=== PATIENT | female | born 1980 | race Caucasian/White ===

== ENCOUNTER 2016-03-11 21:19 | Day surgery (SDC) | payer OTHER ==
[~2016-03-11] VITALS: Ht 157.5 cm; Wt 63.5 kg
[~2016-03-11 21:19] MED LIST: ADVIL,NUPRIN,M200 MG PO; ALPRAZOLAM1 MG PO; AMBIEN10 MG PO; AMPHETAMINE SALT5 MG PO; AUGMENTIN875 MG PO; Buspar PO; CATAPRES0.1 MG; CATAPRES0.1 MG PO; ESCITALOPRAM OX20 MG PO; FLEXERIL10 MG PO; HYDROCODON-ACE1 EAC7 PO; HYDROXYZINE HCL25 MG PO; INDOCIN25 MG PO; INDOMETHACIN75 MG PO; KLONOPIN0.5 M1; LEXAPRO20 MG PO; LEXAPRO5 MG PO; LIDOCAINE20 MG/1 M5 PO; LISINOPRIL; LORTAB 5-325 M1 EACH PO; NAPROSYN500 MG PO; NORCO 5/3251 TABLET PO; PERIOGARD480 ML MM; PREDNISONE20 MG PO; PREDNISONE50 MG PO; SKELAXIN800 MG PO; TYLENOL EXTRA500 MG PO; Xanax PO
[2016-03-11 21:44] LABS: HEMATOCRIT 41.3 % (36.0-46.0); MCH 32.2 PG (29.0-34.0); MCHC 34.6 G/DL (30.0-36.0); MEAN PLAT.VOLUME 9.3 uM^3 (9.5-12.4); PLATELET COUNT 259 K/uL (156-360); RBC DIS.WIDTH-CV 11.8 % (11.8-14.6); RBC DIS.WIDTH-SD 39.3 % (39-53); RED BLOOD COUNT 4.44 M/uL (3.80-5.20); WHITE BLOOD COUNT 15.6 K/uL (4.1-10.2)
[2016-03-11 21:56] LABS: CHLORIDE 104 mEq/L (99-109); POTASSIUM 3.9 mEq/L (3.7-5.4); SODIUM 136 mEq/L (136-147)
[2016-03-11 21:57] LABS: GLUCOSE 118 mg/dL (70-99)
[2016-03-11 21:59] LABS: ANION GAP 8 MEQ/L (2-14)
[2016-03-11 22:01] LABS: GFR ESTIMATE (CALCULATED) > 59 mL/min/
[2016-03-11 22:02] LABS: UREA NITROGEN (BUN) 9 mg/dL (9-23)
[2016-03-11 23:10] LABS: TOTAL BILIRUBIN 0.6 mg/dL (0.0-1.0)
[2016-03-11 23:11] LABS: ALKALINE PHOSPHATASE 38 IU/L (3-129)
[2016-03-11 23:13] LABS: DIRECT BILIRUBIN 0.3 mg/dL (0.0-0.3)
[2016-03-11 23:15] LABS: LIPASE 58 U/L (1.0-51.0)
[2016-03-12 00:13] LABS: QUANTITATIVE HCG < 4.0 MIU/ML
[2016-03-12] MEDS ORDERED: NORCO 7.5/321 TABLET PO (00:19)
[2016-03-12] MEDS ORDERED: GABAPENTIN400 MG PO (00:20)
[2016-03-12] MEDS ORDERED: METHOCARBAMOL750 MG PO (00:20)
[2016-03-12] MEDS ORDERED: LODINE200 MG PO (00:33)
[2016-03-12] MEDS ORDERED: VENTOLIN HFA18 GM IH (00:34)
[2016-03-12] MEDS ORDERED: LIDOCAINE TP (00:34)
[2016-03-12 04:10] VITALS: BP 107/67
[2016-03-12 07:46] LABS: HEMATOCRIT 34.2 % (36.0-46.0); MCH 32.1 PG (29.0-34.0); MCHC 33.3 G/DL (30.0-36.0); MCV 96.3 FL (83-99); MEAN PLAT.VOLUME 9.4 uM^3 (9.5-12.4); PLATELET COUNT 207 K/uL (156-360); RBC DIS.WIDTH-CV 12.3 % (11.8-14.6); RBC DIS.WIDTH-SD 43.1 % (39-53)
[2016-03-12 07:50] LABS: RED BLOOD COUNT 3.55 M/uL (3.80-5.20); WHITE BLOOD COUNT 10.5 K/uL (4.1-10.2)
[2016-03-12 08:00] VITALS: BP 94/69
[2016-03-12 08:03] LABS: ANION GAP 6 MEQ/L (2-14); CHLORIDE 109 MEQ/L (99-109); GFR ESTIMATE (CALCULATED) > 59 mL/min/; GLUCOSE 111 mg/dL (70-99); POTASSIUM 3.9 MEQ/L (3.7-5.4); SAMPLE HEMOLYSIS CHECK 0; SAMPLE ICTERIC CHECK 0; SAMPLE LIPEMIA CHECK 0; SODIUM 138 MEQ/L (136-147); UREA NITROGEN (BUN) 7 mg/dL (9-23)
[2016-03-12 15:24] VITALS: BP 107/71
[2016-03-12 23:50] VITALS: BP 108/70
[2016-03-13 04:12] VITALS: BP 111/72
[2016-03-13 07:25] VITALS: BP 112/68
[2016-03-13 07:34] LABS: HEMATOCRIT 32.8 % (36.0-46.0); MCH 31.2 PG (29.0-34.0); MCHC 32.3 G/DL (30.0-36.0); MCV 96.5 FL (83-99); MEAN PLAT.VOLUME 9.2 uM^3 (9.5-12.4); PLATELET COUNT 202 K/uL (156-360); RBC DIS.WIDTH-CV 12.3 % (11.8-14.6); RBC DIS.WIDTH-SD 43.4 % (39-53)
[2016-03-13 07:38] LABS: WHITE BLOOD COUNT 6.7 K/uL (4.1-10.2)
[2016-03-13 08:28] VITALS: BP 101/68
[2016-03-13] MEDS ORDERED: DIFLUCAN150 MG PO (10:14)
[2016-03-13] MEDS ORDERED: NICOTINE PATCH1 EAC2 TD (10:14)
[2016-03-13] MEDS ORDERED: AUGMENTIN875 MG PO (10:14)
[2016-03-13] MEDS ORDERED: OXYCODONE HCL5 MG PO (10:14)
== END 2016-03-13 12:54 | disposition home or self-care (01) ==
LOC: EME 21:19 → SDC 03-12 00:58 → EME 03-12 00:58 → 2SOUTH 03-12 02:00 → 2EAST 03-12 02:00
PROVIDERS: Surgery
PROC: 0DTJ0ZZ Resection of Appendix, Open Approach (ICD-10-PCS; principal; 2016-03-12)
DX: K35.3 Acute appendicitis with localized peritonitis (principal); K42.9 Umbilical hernia without obstruction or gangrene; K02.9 Dental caries, unspecified; F17.210 Nicotine dependence, cigarettes, uncomplicated; R00.0 Tachycardia, unspecified; G89.29 Other chronic pain; Z79.891 Long term (current) use of opiate analgesic
CPT/HCPCS: 71020; 74177; 80048; 80076; 81003; 83690; 84702; 85027; 87070; 87075; 87076; 87077; 87186; 87205; 88304; 93005; 94010; 94640 76; 94760; 94799; 99202; 99281; 99285; G0378; J0330; J1170; J1650; J1885; J2250; J2405; J2710; J3010; J7030

== ENCOUNTER 2016-09-06 11:09 | Emergency (ER) | payer OTHER ==
[~2016-09-06] VITALS: Ht 157.5 cm; Wt 76.4 kg
[~2016-09-06 11:09] MED LIST changes: +DIFLUCAN150 MG PO; +GABAPENTIN400 MG PO; +LIDOCAINE TP; +LODINE200 MG PO; +METHOCARBAMOL750 MG PO; +NICOTINE PATCH1 EAC2 TD; +NORCO 7.5/321 TABLET PO; +OXYCODONE HCL5 MG PO; +VENTOLIN HFA18 GM IH
[2016-09-06 12:29] LABS: HEMATOCRIT 43.8 % (36.0-46.0); MCH 31.7 PG (29.0-34.0); MCV 93.2 FL (83-99); MEAN PLAT.VOLUME 9.8 uM^3 (9.5-12.4); PLATELET COUNT 219 K/uL (156-360); RBC DIS.WIDTH-CV 11.9 % (11.8-14.6); WHITE BLOOD COUNT 5.2 K/uL (4.1-10.2)
[2016-09-06 12:42] LABS: CHLORIDE 107 mEq/L (99-109); SODIUM 138 mEq/L (136-147)
[2016-09-06 12:44] LABS: GLUCOSE 96 mg/dL (70-99)
[2016-09-06 12:45] LABS: ANION GAP 5 MEQ/L (2-14)
[2016-09-06 12:47] LABS: GFR ESTIMATE (CALCULATED) > 59 mL/min/
[2016-09-06 12:48] LABS: UREA NITROGEN (BUN) 7 mg/dL (9-23)
[2016-09-06 12:50] LABS: TROP-I INTERPRETATION NEGATIVE; TROPONIN-I < 0.01 ng/mL (0.0-0.30)
[2016-09-06 13:46] LABS: D-DIMER ELISA 0.37 mg/L FEU (< 0.57)
[2016-09-06] MEDS ORDERED: ANTIVERT12.5 MG PO (13:50)
[2016-09-06] MEDS ORDERED: MOTRIN600 MG PO (13:50)
[2016-09-06 14:10] VITALS: BP 92/68
[2016-09-13] MEDS ORDERED: BACTRIM,SEPT1 TABLET PO (13:17)
[2016-09-13] MEDS ORDERED: ULTRAM50 MG PO (13:18)
== END 2016-09-06 14:11 | disposition home or self-care (01) ==
LOC: EME → EDBD 11:09 → EME 14:11
PROVIDERS: Emergency Medicine
DX: R42 Dizziness and giddiness (principal); M94.0 Chondrocostal junction syndrome [Tietze]; R06.02 Shortness of breath; F17.200 Nicotine dependence, unspecified, uncomplicated
CPT/HCPCS: 71020; 80048; 84484; 85027; 85379; 93005; 99281; 99284

== ENCOUNTER → 2016-09-13 | Emergency (ER) | payer OTHER ==
[~2016-09-13] VITALS: Ht 157.5 cm; Wt 66.3 kg
[~2016-09-13] MED LIST changes: +ANTIVERT12.5 MG PO; +BACTRIM,SEPT1 TABLET PO; +MOTRIN600 MG PO; +ULTRAM50 MG PO
[2016-09-13 11:49] LABS: HEMATOCRIT 43.1 % (36.0-46.0); MCH 31.7 PG (29.0-34.0); MCHC 34.1 G/DL (30.0-36.0); MCV 92.9 FL (83-99); PLATELET COUNT 214 K/uL (156-360); RBC DIS.WIDTH-CV 11.7 % (11.8-14.6); RED BLOOD COUNT 4.64 M/uL (3.80-5.20)
[2016-09-13 12:02] LABS: ADD MIUA? YES; BILIRUBIN NEGATIVE; BLOOD NEGATIVE; COLOR YELLOW ((YELLOW)); GLUCOSE (STRIP) NEGATIVE; KETONES NEGATIVE; LEUKOCYTES MODERATE; NITRITE POSITIVE; PROTEIN (STRIP) 30; SPECIFIC GRAVITY 1.026 (1.000-1.030); UROBILINOGEN 0.2 MG/DL (0.2-1.0)
[2016-09-13 12:13] LABS: ADD MEDTOX COMMENT Y; AMPHETAMINE NEGATIVE (500 ng/mL); BARBITURATES NEGATIVE (200 ng/mL); BENZODIAZEPINES PRESUMPTIVE POSITIVE (150 ng/mL); COCAINE NEGATIVE (150 ng/mL); INTERNAL CONTROLS VALID? YES; METHADONE NEGATIVE (200 ng/mL); METHAMPHETAMINE NEGATIVE (500 ng/mL); OPIATES (MORPHINE) NEGATIVE (100 ng/mL); OXYCODONE NEGATIVE (100 ng/mL); PHENCYCLIDINE NEGATIVE (25 ng/mL); PROPOXYPHENE NEGATIVE (300 ng/mL); THC CANNABINOIDS NEGATIVE (50 ng/mL); TRICYCLIC ANTIDEPRESSANTS NEGATIVE (300 ng/mL)
[2016-09-13 12:23] LABS: QUANTITATIVE HCG < 4.0 MIU/ML
[2016-09-13 12:31] LABS: BACTERIA 3+ /HPF; BENZODIAZEPINES QUANT VALUE 0 NG/ML; BENZODIAZEPINES, URINE SCREEN Negative (200 ng/mL); EPITHELIAL CELLS 1+ /HPF; MUCUS TRACE /LPF; RED BLOOD CELLS 0-5 /HPF (0-5)
[2016-09-13 12:31] LABS: CHLORIDE 103 mEq/L (99-109); POTASSIUM 4.3 mEq/L (3.7-5.4); SODIUM 134 mEq/L (136-147)
[2016-09-13 12:33] LABS: GLUCOSE 84 mg/dL (70-99)
[2016-09-13 12:34] LABS: ANION GAP 11 MEQ/L (2-14)
[2016-09-13 12:35] LABS: TOTAL BILIRUBIN 0.4 mg/dL (0.0-1.0)
[2016-09-13 12:36] LABS: ALKALINE PHOSPHATASE 41 IU/L (3-129)
[2016-09-13 12:37] LABS: GFR ESTIMATE (CALCULATED) > 59 mL/min/
[2016-09-13 12:38] LABS: UREA NITROGEN (BUN) 12 mg/dL (9-23)
[2016-09-13 14:18] VITALS: BP 91/72
== END | disposition home or self-care (01) ==
LOC: EME 09:57
PROVIDERS: Emergency Medicine
DX: N39.0 Urinary tract infection, site not specified (principal); R42 Dizziness and giddiness; M41.9 Scoliosis, unspecified; F17.200 Nicotine dependence, unspecified, uncomplicated
CPT/HCPCS: 70450; 80053; 81003; 84702; 84999; 85027; 93005; 99281; 99284; J7030

== ENCOUNTER 2017-02-09 14:52 | Emergency (ER) | payer OTHER ==
[~2017-02-09] VITALS: Ht 157.5 cm; Wt 66.9 kg
[2017-02-09] MEDS ORDERED: BUSPAR15 MG PO (16:35)
[2017-02-09] MEDS ORDERED: PROPRANOLOL HCL10 MG PO (16:35)
[2017-02-09] MEDS ORDERED: SEROQUEL50 MG PO (16:35)
[2017-02-09] MEDS ORDERED: SEROQUEL100 MG PO (16:35)
[2017-02-09 17:00] VITALS: BP 114/88
== END 2017-02-09 17:00 | disposition home or self-care (01) ==
LOC: EME 14:52
DX: Z76.0 Encounter for issue of repeat prescription (principal); F43.10 Post-traumatic stress disorder, unspecified; F41.9 Anxiety disorder, unspecified; F17.200 Nicotine dependence, unspecified, uncomplicated
CPT/HCPCS: 99281; 99283

== ENCOUNTER 2017-03-04 12:33 | Emergency (ER) | payer OTHER ==
[~2017-03-04] VITALS: Ht 154.9 cm; Wt 69.4 kg
[~2017-03-04 12:33] MED LIST changes: +BUSPAR15 MG PO; +PROPRANOLOL HCL10 MG PO; +SEROQUEL100 MG PO; +SEROQUEL50 MG PO
[2017-03-04] MEDS ORDERED: INDERAL10 MG PO (14:47)
[2017-03-04] MEDS ORDERED: BUSPAR15 MG PO (14:47)
[2017-03-04] MEDS ORDERED: MOTRIN600 MG PO (14:47)
[2017-03-04] MEDS ORDERED: SEROQUEL100 MG PO (14:47)
[2017-03-04 14:51] VITALS: BP 1102/65
== END 2017-03-04 14:57 | disposition home or self-care (01) ==
LOC: EME 12:33
DX: J02.9 Acute pharyngitis, unspecified (principal); H92.02 Otalgia, left ear; Z76.0 Encounter for issue of repeat prescription; F17.200 Nicotine dependence, unspecified, uncomplicated
CPT/HCPCS: 87651 90; 99281; 99283

== ENCOUNTER 2017-03-12 05:31 | Day surgery (SDC) | payer OTHER ==
[~2017-03-12] VITALS: Ht 157.5 cm; Wt 66.7 kg
[~2017-03-12 05:31] MED LIST changes: +INDERAL10 MG PO
[2017-03-12 06:36] VITALS: BP 120/78
[2017-03-12 09:05] VITALS: BP 115/79
[2017-03-12 09:59] VITALS: BP 121/75
== END 2017-03-12 10:05 | disposition home or self-care (01) ==
LOC: SDC 05:31
PROC: 0UBC8ZX Excision of Cervix, Via Natural or Artificial Opening Endoscopic, Diagnostic (ICD-10-PCS; principal; 2017-03-12)
DX: D06.9 Carcinoma in situ of cervix, unspecified (principal); F41.8 Other specified anxiety disorders; D64.9 Anemia, unspecified; F17.210 Nicotine dependence, cigarettes, uncomplicated
CPT/HCPCS: 88305; 88307; J0131; J1100; J1885; J2250; J2405; J2765; J3010

== ENCOUNTER 2017-07-17 18:30 | Emergency (ER) | payer OTHER ==
[~2017-07-17] VITALS: Ht 157.5 cm; Wt 74.3 kg
[2017-07-17 19:04] LABS: HEMATOCRIT 41.6 % (36.0-46.0); HEMOGLOBIN 14.8 G/DL (11.9-15.5); MCH 31.7 PG (29.0-34.0); MCHC 35.6 G/DL (30.0-36.0); MCV 89.1 FL (83-99); PLATELET COUNT 261 K/uL (156-360); RBC DIS.WIDTH-CV 12.2 % (11.8-14.6); RBC DIS.WIDTH-SD 39.9 % (39-53); RED BLOOD COUNT 4.67 M/uL (3.80-5.20); WHITE BLOOD COUNT 8.5 K/uL (4.1-10.2)
[2017-07-17 19:14] LABS: ALBUMIN 4.6 g/dL (3.2-4.8)
[2017-07-17 19:15] LABS: CHLORIDE 107 mEq/L (99-109); POTASSIUM 3.8 mEq/L (3.7-5.4); SODIUM 138 mEq/L (136-147)
[2017-07-17 19:17] LABS: GLUCOSE 99 mg/dL (70-99); TOTAL PROTEIN 7.9 g/dL (6.4-8.3)
[2017-07-17 19:19] LABS: TOTAL BILIRUBIN 0.5 mg/dL (0.0-1.0)
[2017-07-17 19:20] LABS: ALKALINE PHOSPHATASE 53 IU/L (3-129)
[2017-07-17 19:21] LABS: CREATININE 0.8 mg/dL (0.6-1.3); GFR ESTIMATE (CALCULATED) > 59 mL/min/
[2017-07-17 19:22] LABS: AST (GOT) 16 IU/L (2-34); UREA NITROGEN (BUN) 8 mg/dL (9-23)
[2017-07-17 19:24] LABS: ALT (GPT) 19 IU/L (3-49); LIPASE 204 U/L (1.0-51.0)
[2017-07-17 19:30] LABS: QUANTITATIVE HCG < 4.0 MIU/ML
[2017-07-17] MEDS ORDERED: ZOFRAN ODT4 MG PO (19:34)
[2017-07-17 20:52] VITALS: BP 107/75
== END 2017-07-17 20:52 | disposition home or self-care (01) ==
LOC: EME 18:30
PROVIDERS: Physician Assistant
DX: K85.90 Acute pancreatitis without necrosis or infection, unspecified (principal); F17.200 Nicotine dependence, unspecified, uncomplicated; M41.9 Scoliosis, unspecified
CPT/HCPCS: 80053; 81003; 83690; 84702; 85027; 99281; 99285; J2405; J7030

== ENCOUNTER 2017-07-21 20:56 | Emergency (ER) | payer OTHER ==
[~2017-07-21] VITALS: Ht 157.5 cm; Wt 73.3 kg
[~2017-07-21 20:56] MED LIST changes: +ZOFRAN ODT4 MG PO
[2017-07-21 21:46] LABS: HEMATOCRIT 42.1 % (36.0-46.0); HEMOGLOBIN 14.7 G/DL (11.9-15.5); MCH 31.5 PG (29.0-34.0); MCHC 34.9 G/DL (30.0-36.0); MCV 90.3 FL (83-99); PLATELET COUNT 296 K/uL (156-360); RBC DIS.WIDTH-CV 12.3 % (11.8-14.6); RBC DIS.WIDTH-SD 39.8 % (39-53); RED BLOOD COUNT 4.66 M/uL (3.80-5.20); WHITE BLOOD COUNT 6.5 K/uL (4.1-10.2)
[2017-07-21 21:59] LABS: ALBUMIN 4.6 g/dL (3.2-4.8); CHLORIDE 105 mEq/L (99-109); POTASSIUM 4.4 mEq/L (3.7-5.4); SODIUM 141 mEq/L (136-147)
[2017-07-21 22:01] LABS: GLUCOSE 109 mg/dL (70-99)
[2017-07-21 22:03] LABS: TOTAL BILIRUBIN 0.5 mg/dL (0.0-1.0)
[2017-07-21 22:05] LABS: ALKALINE PHOSPHATASE 53 IU/L (3-129); CREATININE 0.9 mg/dL (0.6-1.3); GFR ESTIMATE (CALCULATED) > 59 mL/min/
[2017-07-21 22:06] LABS: UREA NITROGEN (BUN) 6 mg/dL (9-23)
[2017-07-21 22:07] LABS: AST (GOT) 21 IU/L (2-34)
[2017-07-21 22:08] LABS: ALT (GPT) 26 IU/L (3-49)
[2017-07-21 22:14] LABS: QUANTITATIVE HCG < 4.0 MIU/ML
[2017-07-21 22:47] LABS: LIPASE 53 U/L (1.0-51.0)
[2017-07-22 02:10] LABS: APPEARANCE CLOUDY ((CLEAR)); BILIRUBIN NEGATIVE; BLOOD NEGATIVE; COLOR AMBER ((YELLOW)); GLUCOSE (STRIP) NEGATIVE; KETONES NEGATIVE; LEUKOCYTES MODERATE; NITRITE POSITIVE; PROTEIN (STRIP) 30; SPECIFIC GRAVITY 1.029 (1.000-1.030)
[2017-07-22 02:27] LABS: BACTERIA NONE SEEN /HPF; EPITHELIAL CELLS 2+ /HPF; MUCUS 4+ /LPF; RED BLOOD CELLS 0-5 /HPF (0-5); UCUL ADDED? YES; WHITE BLOOD CELLS 30-40 /HPF (0-5)
[2017-07-22] MEDS ORDERED: ZOFRAN ODT8 MG PO (02:31)
[2017-07-22] MEDS ORDERED: BENTYL20 MG PO (02:31)
[2017-07-22] MEDS ORDERED: PYRIDIUM200 MG PO (02:31)
[2017-07-22] MEDS ORDERED: KEFLEX500 MG PO (02:31)
[2017-07-22 02:45] VITALS: BP 105/80
== END 2017-07-22 02:51 | disposition home or self-care (01) ==
LOC: EME 20:56
DX: N39.0 Urinary tract infection, site not specified (principal); R11.0 Nausea; R10.30 Lower abdominal pain, unspecified; M41.9 Scoliosis, unspecified; F17.200 Nicotine dependence, unspecified, uncomplicated; Z90.49 Acquired absence of other specified parts of digestive tract
CPT/HCPCS: 80053; 81003; 83690; 84702; 85027; 87077; 87086; 87186; 99281; 99285; J0696; J1885; J2405; J7030

== ENCOUNTER 2017-09-14 07:11 | Emergency (ER) | payer OTHER ==
[~2017-09-14] VITALS: Ht 157.5 cm; Wt 70.4 kg
[~2017-09-14 07:11] MED LIST changes: +BENTYL20 MG PO; +KEFLEX500 MG PO; +PYRIDIUM200 MG PO; +ZOFRAN ODT8 MG PO
[2017-09-14 07:37] LABS: APPEARANCE CLOUDY ((CLEAR)); BILIRUBIN SMALL; BLOOD NEGATIVE; COLOR AMBER ((YELLOW)); GLUCOSE (STRIP) NEGATIVE; KETONES 5; LEUKOCYTES SMALL; NITRITE POSITIVE; PROTEIN (STRIP) 30
[2017-09-14 08:01] LABS: RED BLOOD CELLS NONE SEEN /HPF (0-5)
[2017-09-14 08:02] LABS: BACTERIA 1+ /HPF; EPITHELIAL CELLS 2+ /HPF; MUCUS 2+ /LPF; UCUL ADDED? YES; WHITE BLOOD CELLS 40-50 /HPF (0-5)
[2017-09-14] MEDS ORDERED: PYRIDIUM200 MG PO (08:44)
[2017-09-14] MEDS ORDERED: KEFLEX500 MG PO (08:44)
[2017-09-14 08:49] VITALS: BP 124/92
== END 2017-09-14 08:50 | disposition home or self-care (01) ==
LOC: EME 07:11
PROVIDERS: Physician Assistant
DX: N39.0 Urinary tract infection, site not specified (principal); F17.200 Nicotine dependence, unspecified, uncomplicated; M41.9 Scoliosis, unspecified
CPT/HCPCS: 81003; 81025; 87077; 87086; 87186; 99281; 99283